=== PATIENT | male | born 1945 | race Caucasian/White ===

== ENCOUNTER → 2016-05-01 | Outpatient (CLI) | payer MEDICARE, OTHER ==
--- NOTE | 2016-05-01 15:56 | US ---
EXAMINATION TYPE: US kidneys/renal and bladder DATE OF EXAM: 05/01/2016 3:07 PM COMPARISON: NONE CLINICAL HISTORY: N18.9 CKD. Abnormal labs EXAM MEASUREMENTS: Right Kidney: 10.0 x 4.7 x 5.3 cm Left Kidney: 10.1 x 4.2 x 4.8 cm TECHNOLOGIST IMPRESSION: Right Kidney: wnl Left Kidney: wnl Bladder: distended, wnl as visualized Bilateral Jets seen Yes There is no evidence for hydronephrosis at this point in time. No nephrolithiasis is seen. No angelina s are identified. The urinary bladder is anechoic. Bilateral ureteral jets are seen. IMPRESSION: No hydronephrosis is evident bilaterally, unremarkable study.
== END | disposition home or self-care (01) ==
LOC: RADUSWWP 14:36
PROVIDERS: ATTEND Internal Medicine Geriatric Medicine
DX: N18.9 Chronic kidney disease, unspecified (principal)
CPT/HCPCS: 76770

== ENCOUNTER 2016-06-25 11:33 | Day surgery (SDC) | payer MEDICARE, OTHER ==
[~2016-06-25 11:33] MED LIST: LACTATED RINGERS 1,000 ML IV SCH
[2016-06-25 12:08] VITALS: RESP 16; TEMP 98.4
[2016-06-25] MEDS ORDERED: LIDOCAINE 1% 20 ML VIAL (10MG/ML) FOR IV START INTRADERMA ONE (12:16)
[2016-06-25] MEDS ORDERED: LIDOCAINE 1% INJ 10MG/ML (20 ML MDV) ONE (13:01)
[2016-06-25] MEDS ORDERED: PROPOFOL 10 MG/ML 20 ML VIAL IV ONE (13:01)
--- NOTE | 2016-06-25 13:42 | P.PCN ---
Date of Procedure: 06/25/16 Procedure(s) Performed: Procedures: 1. Esophagogastroduodenoscopy and biopsy. 2. Total colonoscopy. Preoperative diagnosis: Reflux symptoms and intermittent dysphagia. Screening colonoscopy. Postoperative diagnosis: 1. Small sliding hiatal hernia with no obvious esophagitis or complicated reflux disease. 2. Mild antral gastritis. 3. Sigmoid diverticulosis with no evidence of acute diverticulitis, strictures, polyps or cancer. 4. Low-grade internal hemorrhoids not bleeding at the time of this exam. Brief clinical history: The patient is a 70-year-old male who is referred for this evaluation for the above reasons. He had a prior colonoscopy around 10 years ago. The patient reported sensation of difficulty when he swallows which is intermittent and has occasional burning feeling in his chest especially at night in the left lateral decubitus position. No weight loss or other alarm symptoms. Procedure: With the patient on his left lateral decubitus position and after informed consent and adequate sedation, I passed the Olympus-GIF 160 video upper endoscope through the cricopharyngeus down the esophagus. GE junction was around 41 cm from the incisors and there was a small sliding hiatal hernia. The endoscope was then passed into the stomach which was insufflated with air and inspected in detail including the retroflex view in the cardia. Finally, the endoscope was passed through the pylorus into the duodenum. Pyloric channel did not show any ulcers. Duodenal bulb, post bulbar area and descending duodenum showed minimal erythema, otherwise, appeared essentially within normal limits. The antrum showed some mottling and erythema but there were no ulcers or erosions. The esophagus did not show any erosions, ulcers, strictures or Rangel's esophagus. I obtained biopsies from the duodenum, antrum and esophagus then the endoscope was withdrawn and I proceeded with the colonoscopy. Perianal area did not show any fissures or fistulas. There were no masses felt on digital rectal examination. The Olympus CFQ 160L video colonoscope was then inserted in the rectum in the usual fashion and advanced to the cecum. The mucosa appeared healthy. There were multiple diverticular orifices seen scattered in the sigmoid with no evidence of acute diverticulitis or strictures. No polyps or tumors were seen. I retroflexed the endoscope in the rectum before the endoscope was withdrawn. The patient tolerated the procedure well. Plan: The patient was reassured. Will await pathology results. Discussed dietary measures. Further plans based on his course. He will follow up with you as planned and I will be happy to see in the office if his symptoms persist.
[2016-06-25 14:13] VITALS: BP 121/81; PULSE 65
== END 2016-06-25 14:16 | disposition home or self-care (01) ==
LOC: ORWHC2ENDO 11:33
DX: Z12.11 Encounter for screening for malignant neoplasm of colon (principal); K29.50 Unspecified chronic gastritis without bleeding; K21.0 Gastro-esophageal reflux disease with esophagitis; K44.9 Diaphragmatic hernia without obstruction or gangrene; K57.30 Diverticulosis of large intestine without perforation or abscess without bleeding; K64.8 Other hemorrhoids; Z87.891 Personal history of nicotine dependence; I10 Essential (primary) hypertension; E78.5 Hyperlipidemia, unspecified; Z79.82 Long term (current) use of aspirin; Z79.899 Other long term (current) drug therapy
CPT/HCPCS: 88305; 88342; 43239; J2001; J2704; G0121; 45378

== ENCOUNTER → 2016-10-16 | Outpatient (CLI) | payer MEDICARE, OTHER ==
--- NOTE | 2016-10-16 09:36 | US ---
EXAMINATION TYPE: US carotid duplex BILAT DATE OF EXAM: 10/16/2016 COMPARISON: NONE CLINICAL HISTORY: I65.22 Left carotid occlusion and stenosis. Patient stated had prior carotid duplex at physician's office and this Us today is followup. EXAM MEASUREMENTS: RIGHT: Peak Systolic Velocity (PSV) cm/sec ----- Right CCA: 105.6 ----- Right ICA: 89.8 ----- Right ECA: 129.1 ICA/CCA ratio: 0.9 RIGHT: End Diastole cm/sec ----- Right CCA: 34.4 ----- Right ICA: 26.8 ----- Right ECA: 28.6 LEFT: Peak Systolic Velocity (PSV) cm/sec ----- Left CCA: 80.1 ----- Left ICA: 110.6 ----- Left ECA: 94.7 ICA/CCA ratio: 1.4 LEFT: End Diastole cm/sec ----- Left CCA: 36.5 ----- Left ICA: 45.8 ----- Left ECA: 27.2 VERTEBRALS (direction of flow): Right Vertebral: Antegrade Left Vertebral: Antegrade Mild to moderate intimal wall changes are noted at bilateral carotid bifurcation. Mildly elevated PSV is recorded at Right ECA proximally. IMPRESSION: 50-69% BY DIAMETER STENOSIS, RIGHT ICA. Criteria for Assigning % of Stenosis / Diameter reduction (Estimation based on the indirect measurements of the internal carotid artery velocities (ICA PSV). 1. Normal (no stenosis)=ICA PSV < 125 cm/s: ratio < 2.0: ICA EDV<40 cm/s. 2. Less than 50% stenosis=ICA PSV < 125 cm/s: ratio < 2.0: ICA EDV<40 cm/s. 3. 50 to 69% stenosis=ICA PSV of 125 to 230 cm/s: ration 2.0 ? 4.0: ICA EDV 40-100 cm/s. 4. Greater than 70% stenosis to near occlusion= ICA PSV > 230 cm/s: ratio > 4.0: ICA EDV > 100 cm/s. 5. Near occlusion= ICA PSV velocities may be low or undetectable: variable ratio and ICA EDV. 6. Total occlusion=unable to detect flow.
== END | disposition home or self-care (01) ==
LOC: RADUSWWP 08:53
PROVIDERS: ATTEND Internal Medicine Geriatric Medicine
DX: I65.21 Occlusion and stenosis of right carotid artery (principal)
CPT/HCPCS: 93880

== ENCOUNTER → 2018-09-23 | Outpatient (CLI) | payer MEDICARE, OTHER ==
--- NOTE | 2018-09-23 15:19 | US ---
EXAMINATION TYPE: US kidneys/renal and bladder DATE OF EXAM: 09/23/2018 COMPARISON: US 2017 CLINICAL HISTORY: N18.9 Chronic kidney disease. CKD EXAM MEASUREMENTS: Right Kidney: 9.1 x 5.1 x 4.9 cm Left Kidney: 9.9 x 4.4 x 5.1 cm Right Kidney: no hydronephrosis or masses seen Left Kidney: no hydronephrosis or masses seen Bladder: wnl Bilateral Jets seen: yes There is no evidence for hydronephrosis at this point in time. No nephrolithiasis is seen. No angelina s are identified. The urinary bladder is anechoic. Bilateral ureteral jets are seen. IMPRESSION: No hydronephrosis or nephrolithiasis. No current sonographic sequela of the patient's kno wn medical renal disease.
== END | disposition home or self-care (01) ==
LOC: RADUSWWP 14:41
PROVIDERS: ATTEND Internal Medicine Geriatric Medicine
DX: N18.9 Chronic kidney disease, unspecified (principal)
CPT/HCPCS: 76770

== ENCOUNTER → 2023-02-28 | Outpatient (CLI) | payer MEDICARE, OTHER ==
--- NOTE | 2023-02-28 18:49 | US ---
EXAMINATION TYPE: US kidneys/renal and bladder DATE OF EXAM: 02/28/2023 COMPARISON: US 09/24/2015 CLINICAL INDICATION: Male, 77 years old with history of R94.4 ABNORMAL RESULTS OF KIDNEY FUNCTION DANIELE DIES; Abnormal BUN/ Creatinine per patient, patient denies any other signs or symptoms at this time. EXAM MEASUREMENTS: Right Kidney: 9.4 x 5.0 x 4.1 cm Left Kidney: 9.9 x 5.0 x 4.4 cm Post Void Residual Volume: NA mL Right Kidney: wnl Left Kidney: wnl Bladder: wnl Bilateral Jets seen: Yes Normal Post Void Residual: NA IMPRESSION: 1. Normal renal ultrasound
== END | disposition home or self-care (01) ==
LOC: RADUSWWP 12:08
PROVIDERS: ATTEND Internal Medicine Geriatric Medicine
DX: R94.4 Abnormal results of kidney function studies (principal)
CPT/HCPCS: 76770

== ENCOUNTER → 2024-06-22 | Outpatient (CLI) | payer MEDICARE, OTHER ==
--- NOTE | 2024-06-23 08:05 | US ---
EXAMINATION TYPE: US kidneys/renal and bladder DATE OF EXAM: 06/22/2024 COMPARISON: US(02/28/2023) CLINICAL INDICATION: Male, 78 years old with history of N18.31 STAGE 3A CKD; TECHNIQUE: Grayscale imaging of the bilateral kidneys and urinary bladder: FINDINGS: EXAM MEASUREMENTS: Right Kidney: 9.3x5.0x4.8 cm Left Kidney: 9.6x4.6x4.1 cm Right Kidney: No hydronephrosis or masses seen Left Kidney: No hydronephrosis or masses seen Bladder: wnl Bilateral Jets seen: Yes Enlarged prostate: 4.8x3.6x4.8cm IMPRESSION: 1. No hydronephrosis. 2. Mild prostatomegaly at 4.8 cm. Correlate with patient's symptoms and PSA values. [facility], Workstation: [facility] MEDICAL CENTERReef Point SystemsLOTTIE, 06/23/2024 8:02 AM
== END | disposition home or self-care (01) ==
LOC: RADUSWWP 14:21
PROVIDERS: ATTEND Internal Medicine Geriatric Medicine
DX: N18.31 Chronic kidney disease, stage 3a (principal); N40.0 Benign prostatic hyperplasia without lower urinary tract symptoms
CPT/HCPCS: 76770